=== PATIENT | female | born 1960 | race Caucasian/White ===

== ENCOUNTER → 2020-08-20 16:29 | Outpatient (CLI) | payer OTHER, SELFPAY ==
--- NOTE | ~2020-08-20 | MM_ITS ---
EXAMINATION: MM screening memo BI w terri HISTORY: Screening mammogram TECHNIQUE: Craniocaudal and mediolateral oblique 3-D tomosynthesis images were obtained and synthetic 2-D images were generated. Bilateral rotated lateral cc views. CAD analysis was submitted and interp reted. COMPARISON: 06/07/2019 bilateral digital screening mammogram....... BREAST PARENCHYMAL COMPOSITION: The breasts are heterogeneously dense, which may obscure small masses . FINDINGS: There is suggestion of possible architectural distortion in the lower inner right breast (M LO Tomosynthesis image 49/73). Diagnostic right mammogram and right breast ultrasound examination are recommended. Occasional bilateral benign calcifications. There is no evidence of suspicious mass, calcification, o r architectural distortion to suggest malignancy in either breast. There has been no suspicious inter mona change. IMPRESSION: 1. Suggestion of possible subtle architectural distortion in the lower inner right breast 2. Diagnostic right mammogram and right breast ultrasound examination are recommended. BI-RADS Category 0: Incomplete: Needs additional imaging evaluation. Reviewed, dictated and finalized at location A. STRIAL RELATIONS DIRECTOR IMPRESSION: 1. Suggestion of possible subtle architectural distortion in the lower inner ri ght breast 2. Diagnostic right mammogram and right breast ultrasound examination are recom mended. BI-RADS Category 0: Incomplete: Needs additional imaging evaluation.
== END ==
PROVIDERS: Visit Provider Nurse Practitioner
DX: Z12.31 Encounter for screening mammogram for malignant neoplasm of breast (principal); R92.8 Other abnormal and inconclusive findings on diagnostic imaging of breast
CPT/HCPCS: 77063; 77067

== ENCOUNTER → 2020-09-16 14:15 | Outpatient (CLI) | payer OTHER, SELFPAY ==
--- NOTE | ~2020-09-16 | MMUS_ITS ---
EXAMINATION: MM diagnostic mammo unilat RT, US breast RT limited HISTORY: Follow-up right breast asymmetry TECHNIQUE: Additional 3-D tomosynthesis images of the right breast were performed and synthetic 2-D i mages were generated. CAD analysis was submitted and interpreted. High resolution Limited right breas t ultrasound was performed. COMPARISON: 08/20/2020 BREAST PARENCHYMAL COMPOSITION: The breasts are heterogenously dense, which may obscure small masses FINDINGS: MAMMOGRAPHIC FINDINGS: There are no suspicious masses, calcifications or architectural distortion in the right breast to sug gest malignancy. ULTRASOUND: Limited right breast ultrasound demonstrates normal heterogeneous echotexture without focal mass. IMPRESSION: 1. No mammographic or sonographic evidence for malignancy in the right breast. 2. Routine yearly screening mammogram and regular clinical breast examination are recommended. BI-RADS Category 1: Negative Reviewed, dictated and finalized at location A. DRY PRESS OPERATOR IMPRESSION: 1. No mammographic or sonographic evidence for malignancy in the right breast. 2. Routine yearly screening mammogram and regular clinical breast examination a re recommended. BI-RADS Category 1: Negative
== END ==
PROVIDERS: Visit Provider Obstetrics & Gynecology Gynecology
DX: R92.8 Other abnormal and inconclusive findings on diagnostic imaging of breast (principal)
CPT/HCPCS: 76642; 77065

== ENCOUNTER 2020-11-02 16:08 | Emergency (ER) | payer OTHER, SELFPAY ==
--- NOTE | ~2020-11-02 | XR_ITS ---
EXAMINATION: XR chest 1V portable DATE: 11/02/2020 16:59 INDICATION: Midsternal chest pain and right arm pain. TECHNIQUE: COMPARISON: Chest radiograph dated FINDINGS: Mild biapical pleural-parenchymal scarring. No other airspace opacities, pulmonary edema, pleural eff usion or pneumothorax. The cardiomediastinal silhouette is normal. Mild upper lumbar levocurvature. IMPRESSION: 1. No acute cardiopulmonary disease. Reviewed, dictated and finalized at location A. ORATE STRATEGY ASSOCIATE
--- NOTE | ~2020-11-02 | CT_ITS ---
EXAMINATION: CTA chest PE protocol DATE: 11/02/2020 17:49 INDICATION: Mid chest pain TECHNIQUE: Computed tomography (CT) pulmonary angiogram of the chest was performed with 100 mL Omnipa que-350 intravenous contrast. Additional 3D reconstructions utilizing coronal maximum intensity proje ction (MIP) were performed. Automated exposure control and iterative reconstruction technique were em ployed. The dose-length product was 213.71 mGy-cm. COMPARISON: None FINDINGS: Excellent contrast opacification of the pulmonary arteries. There is moderate streak artifact from de nse contrast in the superior vena cava and right atrium. Moderate scattered respiratory motion artifa ct. Overall this decreases sensitivity in some of the segmental and subsegmental pulmonary arteries. No definitive pulmonary embolism. No pneumonia, pulmonary edema, pleural effusion or pneumothorax. He art size is normal. No pericardial effusion. Thoracic aorta is normal in caliber with no dissection. There appears to be wall thickening at the mid to distal esophagus approximately 5 cm below the level of the sushil. No pathologically enlarged thoracic lymphadenopathy. 1.8 cm cyst in the left hepatic lobe. Partially visualized large calcified gallstone in the visualized neck of the gallbladder. One s imilar low-attenuation left adrenal adenoma. Mild thoracic dextroscoliosis. IMPRESSION: 1. No pulmonary embolism or other acute cardiopulmonary disease. Sensitivity for pulmonary embolism i s mildly decreased in some of the segmental and subsegmental pulmonary arteries due to streak and mot ion artifact. 2. Focal wall thickening in the mid to distal esophagus. This could be related to esophagitis, malign kayla or artifactual appearance due to streak artifact from the dense contrast in the inferior vena ca va. Consider endoscopy for further evaluation. 3. Cholelithiasis. Reviewed, dictated and finalized at location A. K HANDLER IMPRESSION: 1. No pulmonary embolism or other acute cardiopulmonary disease. Sensitivity fo r pulmonary embolism is mildly decreased in some of the segmental and subsegmen [place] pulmonary arteries due to streak and motion artifact. 2. Focal wall thickening in the mid to distal esophagus. This could be related to esophagitis, malignancy or artifactual appearance due to streak artifact fro m the dense contrast in the inferior vena cava. Consider endoscopy for further evaluation. 3. Cholelithiasis.
[2020-11-02 16:07] VITALS: BP 115/83; PULSE 81; RESP 17; TEMP 36.7; O2SAT 98
[2020-11-02 16:21] VITALS: PULSE 77
[2020-11-02 16:22] VITALS: O2SAT 100
--- NOTE | 2020-11-02 16:24 | ECG_ITS ---
Measurements Intervals [place] Rate: 73 P: 48 MS: 136 QRS: 32 QRSD: 87 T: 25 QT: 377 QTc: 418 Interpretive Statements SINUS RHYTHM NORMAL ECG Electronically Signed On 11-02-2020 19:57:48 OPERATOR RECEPTIONIST by Francis Grewal D.O.
--- NOTE | 2020-11-02 16:25 | ED.CHESTPAIN ---
HPI - Chest Pain General Chief Complaint: Chest Pain Stated Complaint: chest pain Time Seen by Provider: 11/02/20 16:14 Source: patient and family Mode of arrival: EMS Limitations: no limitations History of Present Illness HPI narrative: A 60-year-old female comes into the emergency department today via EMS after sudden onset of chest pain. She and her were at a local bookstore when she began to feel ill. As they were walking out she said she got hit with some sudden pain and collapsed to her knees. She did not ever lose consciousness. She stated that it felt like a ton of bricks was sitting on her chest and pain was a 10 out of 10. Now by the time she is arrived to the ED she notes that the pain is down to about a 1. In route via EMS patient was given aspirin and nitro. She states that she has never had pain like this before. She denies any known cardiac history within her parents or siblings. Patient states that she is not a smoker. Related Data Home Medications Medication Instructions Recorded Confirmed calcium carbonate [Calcium 500] 500 mg DAILY 04/21/20 04/21/20 ergocalciferol (vitamin D2) 50,000 unit 2XW 04/21/20 04/21/20 [Vitamin D2] Allergies Allergy/AdvReac Type Severity Reaction Status Date / Time No Known Allergies Allergy Verified 04/21/20 13:40 Review of Systems Review of Systems: Narrative: CONSTITUTIONAL: Denies fever, chills, or sweats. EYES: Denies visual changes, redness, or discharge. ENT: Denies rhinorrhea, congestion, sore throat, or otalgia. CARDIOVASCULAR: Denies chest pain, palpitations, or edema. RESPIRATORY: Denies cough or dyspnea. GASTROINTESTINAL: Denies abdominal pain, nausea, vomiting, or diarrhea. GENITOURINARY: Denies dysuria or hematuria. SKIN: Denies rash or itching. MUSCULOSKELETAL: Denies back pain, joint pain, or myalgia. NEUROLOGIC: Denies headache, numbness, dizziness, or weakness. PSYCHIATRIC: Denies anxiety or depression. [facility] Past Medical History Medical History Osteopenia Spine Social History Social History Smoking status: Never smoker Spiritual care concerns: No Exam Narrative: Exam Narrative: GENERAL: Well-appearing, well-nourished, and in no acute distress. HEAD: Normocephalic, atraumatic. EYES: PERRLA and EOMI. ENT: Nares clear, no rhinorrhea or epistaxis. Mucous membranes moist. Oropharynx without tonsillar hypertrophy exudate or other lesions. Bilateral TMs pearly escalante nonbulging NECK: Supple. No adenopathy or masses. No carotid bruits or JVD CHEST: Clear to auscultation. No respiratory distress. No wheezes rales or rhonchi HEART: Regular rate and rhythm. No murmur heard. Normal peripheral pulses. ABDOMEN: Soft, nontender, nondistended, normal active bowel sounds. EXTREMITIES: Normal range of motion. No edema. SKIN: Warm, dry, no rash. NEURO: No focal deficits. Alert and oriented x3. PSYCH: Normal mood and affect. Course Reevaluation(s) Reevaluation #1: Reevaluated and provided care update. Informed patient of positive D-dimer, explained to her that we will have to send her for CTA of this. Patient verbalizes her understanding and is resting comfortably with no resumption in her pain. Time: 17:39 Reevaluation #2: Did a final check and reevaluation of the patient. She is still laying calmly with no pain. Had a long discussion regarding risk factors and the pain that the patient was experiencing believe she may have had an anxiety attack. Patient's work-up has been found to be benign. Patient's did state that she has been under an extreme amount of stress lately and this may be contributing. Recommended that they follow-up with a primary care physician and return to the ER should her symptoms continue or worsen. Time: 18:29 Vital Signs Vital signs: Vital Signs Temperature 36.7 C 11/02/20 16:07 Pulse Rate 81 11/02/20
[2020-11-02 17:10] LABS: Basophils Percent Auto 0.5 % (0.2-1.2); Eosinophils Percent Auto 0.3 % (0-4.4); Hematocrit 41.3 % (37.0-47.0); Hemoglobin 13.4 g/dL (12.0-15.0); Immature Granulocyte Absolute 0.01 K/mm3 (0.00-0.031); Immature Granulocyte Percent A 0.2 % (0-0.5); Lymphocytes Absolute Auto 1.33 K/mm3 (0.9-3.2); Lymphocytes Percent Auto 22.2 % (18.3-44.2); Mean Corpuscular HGB Conc 32.4 g/dl (32-36); Mean Corpuscular Volume 92.4 fl (80-100); Mean Platelet Volume 9.6 fl (7.4-10.4); Monocytes Absolute Auto 0.5 K/mm3 (0.1-0.6); Monocytes Percent Auto 8.8 % (2.6-8.5); Neutrophils Absolute Auto 4.1 K/mm3 (1.3-6.7); Platelet Count Result 286 k/mm3 (150-375); Red Blood Count 4.47 M/mm3 (4.2-5.4); Red Cell Distribution Width 12.9 % (11.5-14.5)
[2020-11-02 17:22] LABS: Alanine Aminotransferase 17 U/L (4-35); Albumin Level 4.4 g/dL (3.5-5.1); Alkaline Phosphatase 58 U/L (38-126); Anion Gap 5 mmol/L (8-16); Aspartate Amino Transferase 23 U/L (14-36); Bilirubin,Total 0.5 mg/dL (0.2-1.3); Blood Urea Nitrogen 18 mg/dL (7-17); Calcium 9.3 mg/dL (8.4-10.2); Carbon Dioxide 29 mmol/L (22-30); Chloride 109 mmol/L (98-107); D Dimer 0.68 ug/mL (<0.48); Estimated CRCL calculation 41 ml/min; Estimated Glomerular Filt Rate 50; Glucose 97 mg/dL (65-105); Lipase 95 U/L (23-300); Potassium 4.1 mmol/L (3.4-5.0); Sodium 143 mmol/L (137-145)
[2020-11-02 17:34] LABS: Troponin I < 0.012 ng/mL (0.000-0.034)
--- NOTE | 2020-11-02 17:47 | PC.NURSE ---
Pt to CT scan via stretcher at this time.
[2020-11-02 17:53] VITALS: BP 133/90; PULSE 77; RESP 16; O2SAT 100
[2020-11-02 19:12] VITALS: BP 126/87; PULSE 67; RESP 16; O2SAT 99
== END 2020-11-02 19:13 | disposition home or self-care (01) ==
PROVIDERS: Emergency Provider Emergency Medicine; PCP Family Medicine
DX: R07.89 Other chest pain (principal); M85.88 Other specified disorders of bone density and structure, other site; K80.20 Calculus of gallbladder without cholecystitis without obstruction; R93.3 Abnormal findings on diagnostic imaging of other parts of digestive tract
CPT/HCPCS: 36415; 71045; 71275; 80053; 83690; 84484; 85025; 85380; 93005; 99284; Q9967

== ENCOUNTER → 2020-12-02 00:48 | Outpatient (CLI) | payer OTHER, SELFPAY ==
[2020-12-02 18:32] LABS: SARS-CoV-2 RNA PCR Negative
== END ==
PROVIDERS: PCP Family Medicine; Visit Provider Internal Medicine Gastroenterology
DX: Z01.812 Encounter for preprocedural laboratory examination (principal); Z20.822 Contact with and (suspected) exposure to COVID-19
CPT/HCPCS: C9803; U0003; U0005

== ENCOUNTER 2020-12-05 00:39 | Day surgery (SDC) | payer OTHER, SELFPAY ==
[2020-11-24 11:34] VITALS: BMI 23.1
[2020-12-05 07:39] VITALS: BP 112/67; PULSE 84; RESP 18; TEMP 36.3; O2SAT 100
[2020-12-05] MEDS: LACTATED RINGERS 1,000 ML 150 ML IV CONT (07:51)
--- NOTE | 2020-12-05 07:52 | WPDANESEPPF ---
Anes - Initial Pre Proc Eval Procedure: Operation Date: 12/05/20 08:45 Proposed Procedures p Esophagogastroduodenoscopy & Screening Colonoscopy - Luis Pelletier MD Date/Time: 12/05/20 07:52 Surgeon: Luis Pelletier MD Pre Op Diagnosis: neoplasm screening, abn CT and xray Patient Data Age: 60 Gender: F Height: 5 ft 5 in Weight: 64 kg Last Vital Signs Temp 36.3 C L 12/05/20 07:39 Pulse 84 12/05/20 07:39 Resp 18 12/05/20 07:39 BP 112/67 12/05/20 07:39 Pulse Ox 100 12/05/20 07:39 Allergies Allergy/AdvReac Type Severity Reaction Status Date / Time No Known Allergies Allergy Verified 12/05/20 07:37 Home Medications Medication Instructions Recorded Confirmed Type calcium carbonate [Calcium 500] 500 mg DAILY 04/21/20 11/24/20 History ergocalciferol (vitamin D2) 50,000 unit 2XW 04/21/20 11/24/20 History [Vitamin D2] calcium carbonate-vitamin D3 1 cap PO DAILY 11/24/20 11/24/20 History [Calcium 600 with Vitamin D3] cyanocobalamin (vitamin B-12) 500 mcg PO DAILY 11/24/20 11/24/20 History [Vitamin B-12] escitalopram oxalate 10 mg PO HS 11/24/20 11/24/20 History hydroxyzine HCl 25 mg PO HS 11/24/20 11/24/20 History Patient hx anesthesia problems: none Family hx anesthesia problems: none [facility] Past Medical History Medical History (Updated 12/05/20 @ 07:53 by Javy Perry MD) Anxiety Osteopenia Spine Social History Social History Smoking status: Never smoker Alcohol intake: current Substance use: never Substance use type: does not use Living arrangements: with family Gender identity (if verbalized by the patient): Female Spiritual care concerns: No Anes - Eval Final PreProcedure Day of Procedure 12/05/20 07:52 Patient weight: normal Heart: regular rate and rhythm Lungs: clear to auscultation Airway: Mallampati scale class II Neurological: alert and oriented Last oral intake: >/= 8 hours ASA classification: II Emergent: no Anesthetic plan: proceed Anesthesia type and monitoring: general GIVS and standard monitoring Informed Consent: The patient's anesthetic plan and its attendant risks and benefits were discussed with the patient/family/POA. Questions were solicited and answers provided to the satisfaction of the patient/family/POA.
--- NOTE | 2020-12-05 08:59 | PM.HPGS ---
History of Present Illness History of Present Illness Consent: Risks, benefits, and alternatives have been discussed and questions answered. Patient agrees to proceed with procedure. Chief complaint: neoplasm screening, abn CT and xray Narrative: Edith Mirza is a 60 year old female with non-cardiac chest pain, ER visit with CTA chest showed focal wall thickening in the mid to distal esophagus, also needs screening colonoscopy Review of Systems Constitutional: Constitutional: Denies headache(s) and Denies weakness Eyes: Eyes: Denies blurry vision ENT: Reports Normal hearing present, Denies headache(s) and Denies neck pain Cardiovascular: Cardiovascular: Denies chest pain and Denies dyspnea Respiratory: Respiratory: Denies dyspnea Gastrointestinal: Gastrointestinal: Reports no additional gastrointestinal complaints Genitourinary: Genitourinary: Denies dysuria Musculoskeletal: Musculoskeletal: Denies neck pain Integumentary/Breasts: Skin/Breast: Denies dry skin Neurologic: Reports Normal hearing present, Denies headache(s) and Denies weakness Psychiatric: Psychiatric: Denies anxiety Endocrine: Endocrine: Denies change in body appearance Hematologic/Lymphatic: Hematologic/Lymphatic: Denies easy bleeding Allergic/Immunologic: Allergic/Immunologic: Denies urticaria PMFSH Past Medical History Medical History (Updated 12/05/20 @ 09:01 by Luis Pelletier MD) Abnormal CT scan, esophagus Anxiety Colon cancer screening Osteopenia Spine Social History Social History Smoking status: Never smoker Alcohol intake: current Substance use: never Substance use type: does not use Living arrangements: with family Gender identity (if verbalized by the patient): Female Spiritual care concerns: No Meds Home Medications and Allergies Home Medications Medication Instructions Recorded Confirmed Type calcium carbonate [Calcium 500] 500 mg DAILY 04/21/20 11/24/20 History ergocalciferol (vitamin D2) 50,000 unit 2XW 04/21/20 11/24/20 History [Vitamin D2] calcium carbonate-vitamin D3 1 cap PO DAILY 11/24/20 11/24/20 History [Calcium 600 with Vitamin D3] cyanocobalamin (vitamin B-12) 500 mcg PO DAILY 11/24/20 11/24/20 History [Vitamin B-12] escitalopram oxalate 10 mg PO HS 11/24/20 11/24/20 History hydroxyzine HCl 25 mg PO HS 11/24/20 11/24/20 History Allergies Allergy/AdvReac Type Severity Reaction Status Date / Time No Known Allergies Allergy Verified 12/05/20 07:37 Vital Signs Vital Signs - 24 hr 12/05/20 07:39 Temperature 97.4 F L Pulse Rate 84 Respiratory Rate 18 Blood Pressure 112/67 Pulse Oximetry 100 Exam Const: General: comfortable and no acute distress HENMT: General nose exam: Normal nares present Eyes: General: appearance normal, both eyes and all related structures Neck: Neck: no JVD Resp: Auscultation: clear to auscultation bilaterally Cardio: Rate: regular rate Rhythm: regular rhythm GI: Inspection: non-distended GI Palp: Yes Soft to palpation Skin: General skin exam: normal color Neuro: General: gait normal Speech: normal speech Extrem: General: normal to inspection Psych: Mental Status: mental status grossly normal Assessment and Plan Assessment and plan (1) Abnormal CT scan, esophagus: Code(s): R93.3 - Abnormal findings on diagnostic imaging of other parts of digestive tract Status: Acute Assessment and Plan: egd (2) Colon cancer screening: Code(s): Z12.11 - Encounter for screening for malignant neoplasm of colon Status: Acute Assessment and Plan: colonoscopy
[2020-12-05 09:20] VITALS: BP 98/63; PULSE 78; RESP 18; O2SAT 98
[2020-12-05 09:30] VITALS: BP 107/74; PULSE 72; RESP 14; O2SAT 96
[2020-12-05 09:40] VITALS: BP 121/86; PULSE 69; RESP 24; O2SAT 100
== END 2020-12-05 09:54 | disposition home or self-care (01) ==
PROVIDERS: PCP Family Medicine; Visit Provider Internal Medicine Gastroenterology
PROC: 0DJ08ZZ Inspection of Upper Intestinal Tract, Via Natural or Artificial Opening Endoscopic (ICD-10-PCS; CPT 43235; principal; 2020-12-05 08:45)
DX: K44.9 Diaphragmatic hernia without obstruction or gangrene (principal); R07.89 Other chest pain; Z12.11 Encounter for screening for malignant neoplasm of colon; D12.0 Benign neoplasm of cecum; K63.5 Polyp of colon; K57.30 Diverticulosis of large intestine without perforation or abscess without bleeding; K64.8 Other hemorrhoids; F41.9 Anxiety disorder, unspecified; M85.88 Other specified disorders of bone density and structure, other site
CPT/HCPCS: 43239; 45385; 88305; C9803; J2704; J7120; U0003; U0005